=== PATIENT | male | born 1965 | race Caucasian/White ===

== ENCOUNTER 2017-04-05 10:57 | Emergency (ER) | payer BC ==
--- NOTE | 2017-04-05 11:24 | ER Document Report ---
ED Medical Screen (RME) - General Chief Complaint: Chest Pain Stated Complaint: BACK PAIN Time Seen by Provider: 04/05/17 11:21 Mode of Arrival: Ambulatory Information source: Patient TRAVEL OUTSIDE OF THE [place] IN LAST 30 DAYS: No - HPI Patient complains to provider of: Back pain, chest pain Notes: 04/05/17 11:23 Patient is a 51-year-old male with no past medical history who presents to the emergency room today complaining of left upper back pain radiating into his chest that started when he woke up first thing in the morning, he reports associated shortness of breath, no history of similar symptoms previously - Related Data Allergies/Adverse Reactions: No Known Allergies Allergy (Verified 04/05/17 11:07) Past Medical History - Social History Chew tobacco use (# tins/day): No Frequency of alcohol use: 1 beer daily Drug Abuse: None Renal/ Medical History: Denies: Hx Peritoneal Dialysis Past Surgical History: Reports: Hx Orthopedic Surgery - left hand - Immunizations Hx Diphtheria, Pertussis, Tetanus Vaccination: No History of Influenza Vaccine for 03/2017 - 08/2017 Season: No Physical Exam - Vital signs Vitals: Temp Pulse Resp BP Pulse Ox 98.4 F 79 16 174/95 H 98 04/05/17 11:07 04/05/17 11:07 04/05/17 11:07 04/05/17 11:07 04/05/17 11:07 Course - Vital Signs Vital signs: Temp Pulse Resp BP Pulse Ox 98.4 F 79 16 174/95 H 98 04/05/17 11:07 04/05/17 11:07 04/05/17 11:07 04/05/17 11:07 04/05/17 11:07
[2017-04-05 11:47] LABS: ABSOLUTE EOSINOPHILS # (AUTO) 0.1 10^3/uL (0.0-0.6); ABSOLUTE LYMPHOCYTES (AUTO) 1.7 10^3/uL (0.5-4.7); ABSOLUTE MONOCYTES (AUTO) 0.4 10^3/uL (0.1-1.4); ABSOLUTE NEUT (AUTO) 2.9 10^3/uL (1.7-8.2); BASOPHILS % (AUTO) 0.7 % (0-2); EOSINOPHILS % (AUTO) 1.2 % (0-6); HEMATOCRIT 44.6 % (37.9-51.0); HEMOGLOBIN 15.6 g/dL (13.5-17.0); HGB HCT DIFFERENCE 2.2; LYMPHOCYTES % (AUTO) 32.9 % (13-45); MEAN CORPUSCULAR HEMOGLOBIN 32.4 pg (27.0-33.4); MEAN CORPUSCULAR HGB CONC 35.1 g/dL (32.0-36.0); MEAN CORPUSCULAR VOLUME 92 fl (80-97); MONOCYTES % (AUTO) 8.6 % (3-13); RED BLOOD COUNT 4.82 10^6/uL (4.35-5.55); RED CELL DISTRIBUTION WIDTH 12.1 % (11.5-14.0); SEGMENTED NEUTROPHILS % (AUTO) 56.6 % (42-78); WHITE BLOOD COUNT 5.1 10^3/uL (4.0-10.5)
--- NOTE | 2017-04-05 11:59 | RADIOLOGY REPORT (SQ) ---
EXAM DESCRIPTION: CHEST PA/LAT COMPLETED DATE/TIME: 04/05/2017 11:39 am REASON FOR STUDY: cp COMPARISON: None. EXAM PARAMETERS: NUMBER OF VIEWS: two views TECHNIQUE: Digital Frontal and Lateral radiographic views of the chest acquired. RADIATION DOSE: NA LIMITATIONS: none FINDINGS: LUNGS AND PLEURA: No opacities, masses or pneumothorax. No pleural effusion. Calcified gr anuloma right lung apex. MEDIASTINUM AND HILAR STRUCTURES: No masses or contour abnormalities. HEART AND VASCULAR STRUCTURES: Heart normal size. No evidence for failure. BONES: No acute findings. HARDWARE: None in the chest. OTHER: No other significant finding. IMPRESSION: NO SIGNIFICANT RADIOGRAPHIC FINDING IN THE CHEST. TECHNICAL DOCUMENTATION: JOB ID: [id number] [employer]- All Rights Reserved
[2017-04-05 12:08] LABS: ALANINE AMINOTRANSFERASE 45 U/L (21-72); ALBUMIN 4.2 g/dL (3.5-5.0); ALKALINE PHOSPHATASE 97 U/L (38-126); ANION GAP 12 (5-19); ASPARTATE AMINO TRANSFERASE 19 U/L (17-59); BILIRUBIN,DIRECT 0.3 mg/dL (0.0-0.4); BILIRUBIN,TOTAL 0.8 mg/dL (0.2-1.3); BLOOD UREA NITROGEN 14 mg/dL (7-20); CALCIUM 9.4 mg/dL (8.4-10.2); CARBON DIOXIDE 24 mmol/L (22-30); CHLORIDE 107 mmol/L (98-107); CREATINE KINASE 83 U/L (55-170); CREATININE RESULT 0.72 mg/dL (0.52-1.25); GLUCOSE 113 mg/dL (75-110); LIPASE 180.4 U/L (23-300); SODIUM 142.6 mmol/L (137-145); TOTAL PROTEIN 6.6 g/dL (6.3-8.2)
[2017-04-05 12:18] LABS: CREATINE KINASE MB 1.42 ng/mL (<4.55); TROPONIN I < 0.012 ng/mL
[2017-04-05] MEDS ORDERED: KETOROLAC TROMETHAMINE INJ/PF 30 MG/1 ML SDV IV ONE (12:30)
--- NOTE | 2017-04-05 12:30 | ER Document Report ---
ED Cardiac - General Mode of Arrival: Ambulatory Information source: Patient TRAVEL OUTSIDE OF THE [place] IN LAST 30 DAYS: No - HPI Patient complains to provider of: Chest pain Chest pain location: Back Associated symptoms: Other - see HPI <JULIANA MÁRQUEZ - Last Filed: 04/05/17 12:30> <JOSE BROWN - Last Filed: 04/05/17 14:28> - General Chief Complaint: Chest Pain Stated Complaint: BACK PAIN Time Seen by Provider: 04/05/17 11:21 Notes: Patient is a 51 year old male who presents to the ED with complaints of chest pain with onset this morning at 0700. Patient states that it started out in his back by his left shoulder blade and has radiated around to the front of his chest. Patient states the pain is worse when he moves. 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 He does have some associated dyspnea secondary to the pain. (JULIANA MÁRQUEZ) - Related Data Allergies/Adverse Reactions: No Known Allergies Allergy (Verified 04/05/17 11:07) Past Medical History - General Information source: Patient - Social History Smoking Status: Never Smoker Chew tobacco use (# tins/day): No Frequency of alcohol use: 1 beer daily Drug Abuse: None Family History: Hypertension Renal/ Medical History: Denies: Hx Peritoneal Dialysis Past Surgical History: Reports: Hx Orthopedic Surgery - left hand - Immunizations Hx Diphtheria, Pertussis, Tetanus Vaccination: No <JULIANA MÁRQUEZ - Last Filed: 04/05/17 12:30> Review of Systems - Review of Systems Constitutional: No symptoms reported EENT: No symptoms reported Cardiovascular: See HPI, Chest pain, Dyspnea - from the pain Respiratory: No symptoms reported Gastrointestinal: No symptoms reported Genitourinary: No symptoms reported Male Genitourinary: No symptoms reported Musculoskeletal: See HPI, Back pain Skin: No symptoms reported Hematologic/Lymphatic: No symptoms reported Neurological/Psychological: No symptoms reported <JULIANA MÁRQUEZ - Last Filed: 04/05/17 12:30> Physical Exam - General General appearance: Appears well, Alert In distress: None - HEENT Head: Normocephalic, Atraumatic Eyes: Normal Pupils: PERRL - Respiratory Respiratory status: No respiratory distress Chest status: Nontender Breath sounds: Normal Chest palpation: Normal - Cardiovascular Rhythm: Regular Heart sounds: Normal auscultation Murmur: No - Abdominal Inspection: Normal, Striae Bowel sounds: Normal Tenderness: Nontender - Back Back: Other - tender to left medial scapular border - Extremities General upper extremity: Normal inspection, Normal strength General lower extremity: Normal inspection, Normal strength. No: Edema - Neurological Neuro grossly intact: Yes - Psychological Associated symptoms: Normal affect, Normal mood - Skin Skin Temperature: Warm Skin Moisture: Dry Skin Color: Normal <JULIANA MÁRQUEZ - Last Filed: 04/05/17 12:30> - Vital signs Vitals: Temp Pulse Resp BP Pulse Ox 98.4 F 79 16 174/95 H 98 04/05/17 11:07 04/05/17 11:07 04/05/17 11:07 04/05/17 11:07 04/05/17 11:07 Course - Laboratory Result Diagrams: 04/05/17 11:30 04/05/17 11:30 <JULIANA MÁRQUEZ - Last Filed: 04/05/17 12:30> - Laboratory Result Diagrams: 04/05/17 11:30 04/05/17 11:30 - Diagnostic Test Radiology reviewed: Image reviewed, Reports reviewed - Chest x-ray is unremarkable - EKG Interpretation by Fl EKG shows normal: Sinus rhythm, Sa[place], Intervals, QRS Complexes, ST-T Waves Rate: Normal - 76 Rhythm: NSR <JOSE BROWN - Last Filed: 04/05/17 14:28> - Re-evaluation Re-evalutation: 04/05/17 14:28 The patient reports that his left scapular region and left anterior chest does feel much better after the Toradol injection. (JOSE BROWN) - Vital Signs Vital signs: Temp Pulse Resp BP Pulse Ox 98.4 F 79 21 H 174/95 H 96 04/05/17 11:07 04/05/17 11:07 04/05/17 11:46 04/05/17 11:07 04/05/17 11:46 - Laboratory Laboratory results interpreted by me: 04/05/17 11:30 Glucose 113 H Discharge <JULIANA MÁRQUEZ - Last Filed: 04/05/17 12:30> <JSOE BROWN - Last Filed: 04/05/17 14:28> - Discharge Clinical Impression: Muscle strain of left scapular region Qualifiers: Encounter type: initial encounter Qualified Code(s): S46.912A - Strain of unspecified muscle, fascia and tendon at shoulder and upper arm level, left arm , initial encounter Condition: Stable Disposition: HOME, SELF-CARE Additional Instructions: Muscle Strain: You have PROBABLY strained the left medial scapular muscles. This often occurs with strenuous exertion, or during an injury that suddenly stretches the muscle. The seriousness of a strain varies. Some strains heal within days, others cause problems for months. X-rays cannot show a muscle strain. X-rays are taken only if symptoms suggest that a fracture could be present. The usual treatment of a muscle strain is rest and ice packs. Sometimes, a sling, splint, or crutches may be necessary to rest the muscle. The muscle can be used again once pain subsides. Severe strains require a special exercise and stretching program to prevent permanent stiffness and disability. Your doctor will advise you if this will be necessary. Call the doctor immediately if pain or swelling becomes severe, or if numbness or discoloration develop. USE THE SLING TO ALLOW THE SHOULDER AND SCAPULAR MUSCLES TO RELAX. TAKE TYLENOL AND MOTRIN FOR PAIN IF NEEDED. LIMIT USING THE LEFT ARM FOR A FEW DAYS. CHECK YOUR BLOOD PRESSURE EVERY DAY FOR THE NEXT WEEK--IF IT REMAINS HIGH, THEN SEE A LOCAL MEDICAL DOCTOR FOR TREATMENT. RETURN TO THE EMERGENCY ROOM IF ANY NEW OR WORSENING SYMPTOMS. Scribe Attestation: 04/05/17 14:28 I personally performed the services described in the documentation, reviewed and edited the documentation which was dictated to the scribe in my presence, and it accurately records my words and actions. (JOSE BROWN) Scribe Documentation - Scribe Written by Tata:: tata Shin, 04/05/17, 1231 acting as scribe for :: Sheila <JULIANA MÁRQUEZ - Last Filed: 04/05/17 12:30>
[2017-04-05 14:40] VITALS: BP 147/99
--- NOTE | 2017-04-05 15:01 | EKG REPORT ---
SEVERITY:- NORMAL ECG - SINUS RHYTHM : Confirmed by: Shin Contreras MD 05-Apr-2017 15:01:31
== END 2017-04-05 14:41 | disposition home or self-care (01) ==
LOC: ER 10:57
DX: S46.912A Strain of unspecified muscle, fascia and tendon at shoulder and upper arm level, left arm, initial encounter (principal); R07.9 Chest pain, unspecified; M54.9 Dorsalgia, unspecified; X50.0XXA Overexertion from strenuous movement or load, initial encounter; Y93.9 Activity, unspecified
CPT/HCPCS: 93005; 99285; 96374; 36415; 82553; 82550; 83690; 85025; 80053; 84484; 85379; 71020; 93010; J1885